=== PATIENT | male | born 1980 | race Caucasian/White ===

== ENCOUNTER 2018-05-11 06:16 | Day surgery (SDC) | payer OTHER ==
[2018-05-08 16:22] VITALS: BMI 27.0
[2018-05-11] MEDS ORDERED: CEFAZOLIN 2 GM/50 ML BAG ONE (06:40)
[2018-05-11] MEDS ORDERED: CEFAZOLIN 1 GM VIAL ONE (06:41)
[2018-05-11] MEDS ORDERED: Sodium Chloride 0.9% 100 ML ONE (06:41)
[2018-05-11] MEDS ORDERED: Lidocaine 1% w/Epinephrine 1:200K 30 ML VIAL ONE (08:17)
[2018-05-11] MEDS ORDERED: Fentanyl 100 MCG/2 ML VIAL ONE (08:31)
[2018-05-11] MEDS ORDERED: Meperidine HCl/PF 25 MG/ML VIAL ONE (09:19)
--- NOTE | 2018-05-11 09:57 | OP ---
DATE OF PROCEDURE: 05/11/2018 PREOPERATIVE DIAGNOSIS: Ganglion cyst right wrist. POSTOPERATIVE DIAGNOSIS: Ganglion cyst right wrist. PROCEDURE: Removal of ganglion, right wrist. SURGEON: Jesús Pop M.D. ANESTHESIA: General. BLOOD LOSS: Minimal. SPECIMEN: None. DRAINS: None. COMPLICATIONS: None. NARRATIVE REPORT: The patient was taken to the operating room where general anesthesia was induced. Right arm was prepped and draped in the usual sterile fashion. After exsanguination, tourniquet was inflated to 250 mmHg. I made a transverse incision along Devin's lines, I dissected the cyst down t o the joint level, amputated from the joint level. I then used a Bovie to coagulate the margins of t he synovium. Irrigation was performed. Tourniquet was released, hemostasis obtained. Skin was clos ed with subcuticular Prolene sutures and Steri-Strips and sterile dressings applied.
== END 2018-05-11 10:30 | disposition home or self-care (01) ==
LOC: SDC 06:16 → EEVIPCON 16:15
PROVIDERS: ATTEND Orthopaedic Surgery
PROC: 0LB50ZZ Excision of Right Lower Arm and Wrist Tendon, Open Approach (ICD-10-PCS; principal; 2018-05-11)
DX: M67.431 Ganglion, right wrist (principal); Z79.899 Other long term (current) drug therapy
CPT/HCPCS: 96374; J0690; J2175; J3010; J7050

== ENCOUNTER 2022-04-28 08:34 | Outpatient (CLI) | payer OTHER | END 2022-04-28 08:35 | disposition home or self-care (01) | LOC: MRI 08:34 | PROVIDERS: ATTEND Nurse Practitioner Family | DX: S83.412A Sprain of medial collateral ligament of left knee, initial encounter (principal); S80.02XA Contusion of left knee, initial encounter ==

== ENCOUNTER 2022-07-06 08:57 | Outpatient (CLI) | payer BC ==
[2022-07-06 10:16] LABS: #Eosinphils 0.5 10x3/uL (0.0-0.5); #Monocytes 0.7 10x3/uL (0.0-1.1); #Neutrophils 2.7 10x3/uL (1.5-8.4); %Basophils 0.6 % (0.0-2.0); %Eosinophils 7.2 % (0.0-6.0); %Lymphocytes 40.4 % (18.0-47.0); %Monocytes 10.1 % (0.0-10.0); %Neutrophils 41.5 % (40.0-75.0); Hemoglobin 14.3 g/dL (13.5-17.5); Mean Corpuscular HGB CONC 35.6 g/dL (32.0-36.0); Mean Corpuscular Volume 84.3 fl (81.2-95.1); Mean Platelet Volume 9.9 fl (7.4-10.4); Platelet Count 447 10x3/uL (150-450); RBC Distribution Width 12.1 % (11.5-14.5); Red Blood Cell (RBC) Count 4.77 10x6/uL (4.32-5.72); White Blood Cell (WBC) Count 6.5 10x3/uL (3.5-10.5)
== END 2022-07-06 08:58 | disposition home or self-care (01) ==
LOC: LABBT 08:57
PROVIDERS: ATTEND Orthopaedic Surgery
DX: Z01.812 Encounter for preprocedural laboratory examination (principal); S83.512D Sprain of anterior cruciate ligament of left knee, subsequent encounter; S83.242D Other tear of medial meniscus, current injury, left knee, subsequent encounter
CPT/HCPCS: 85025

== ENCOUNTER 2022-07-08 05:43 | Day surgery (SDC) | payer OTHER ==
[2022-07-07 10:09] VITALS: BMI 28.5
[2022-07-08] MEDS ORDERED: Fentanyl 100 MCG/2 ML VIAL ONE (06:30)
[2022-07-08] MEDS ORDERED: Midazolam HCl 2 mg/2 ml Vial ONE (06:30)
[2022-07-08] MEDS ORDERED: Ondansetron PF 4 MG/2 ML Vial ONE (06:50)
[2022-07-08] MEDS ORDERED: Dexamethasone 20 MG/5 ML VIAL ONE (06:50)
[2022-07-08] MEDS ORDERED: Ketorolac Tromethamine 30 MG/ML VIAL ONE (06:50)
[2022-07-08] MEDS ORDERED: PROPOFOL 200 MG/20 ML VIAL ONE (06:50)
[2022-07-08] MEDS ORDERED: Lidocaine 1% PF 5 ML VIAL ONE (06:50)
[2022-07-08] MEDS ORDERED: CEFAZOLIN 2 GM VIAL ONE (07:00)
[2022-07-08] MEDS ORDERED: Sodium Chloride 0.9% 100 ML ONE (07:00)
[2022-07-08] MEDS ORDERED: EPINEPHrine 1 MG/ML AMP ONE (07:02)
[2022-07-08] MEDS ORDERED: Bupivacaine PF 0.5% 30 ML VIAL ONE (07:02)
[2022-07-08] MEDS ORDERED: Lidocaine 1% (PF) 30 ML VIAL ONE (07:02)
[2022-07-08] MEDS ORDERED: HYDROmorphone 0.5 MG/0.5 ML SYRINGE ONE (07:03)
[2022-07-08] MEDS ORDERED: traMADol HCl 50 MG TAB PO PRN ×2 (07:15)
[2022-07-08] MEDS ORDERED: Ondansetron PF 4 MG/2 ML Vial IVP PRN (07:15)
[2022-07-08] MEDS ORDERED: Promethazine HCl 25 MG/ML VIAL IM PRN (07:15)
[2022-07-08] MEDS ORDERED: Ropivacaine 0.2% 550 ML 550 ML NERVE BLCK SCH (07:15)
[2022-07-08] MEDS ORDERED: Zolpidem Tartrate 5 MG TAB PO PRN (07:15)
[2022-07-08] MEDS ORDERED: HYDROcodone/Acetaminophen 10/325 mg Tablet PO PRN ×2 (07:15)
[2022-07-08] MEDS ORDERED: Fentanyl 100 MCG/2 ML VIAL IV PRN (07:15)
[2022-07-08] MEDS ORDERED: Meperidine HCl/PF 25 MG/ML VIAL ONE (09:21)
[2022-07-08] MEDS ORDERED: Ketorolac Tromethamine 30 MG/ML VIAL IVP SCH (12:00)
== END 2022-07-08 11:43 | disposition home or self-care (01) ==
LOC: SDC 05:43
PROVIDERS: ATTEND Orthopaedic Surgery
PROC: 0MQP4ZZ Repair Left Knee Bursa and Ligament, Percutaneous Endoscopic Approach (ICD-10-PCS; principal; 2022-07-08)
DX: S83.512A Sprain of anterior cruciate ligament of left knee, initial encounter (principal); S83.242A Other tear of medial meniscus, current injury, left knee, initial encounter; S83.272A Complex tear of lateral meniscus, current injury, left knee, initial encounter; T14.8XXA Other injury of unspecified body region, initial encounter; M22.42 Chondromalacia patellae, left knee; E78.00 Pure hypercholesterolemia, unspecified; F17.290 Nicotine dependence, other tobacco product, uncomplicated; Z79.899 Other long term (current) drug therapy; X50.1XXA Overexertion from prolonged static or awkward postures, initial encounter; Y93.02 Activity, running; Y99.0 Civilian activity done for income or pay
CPT/HCPCS: A4306; C1713; J0171; J1100; J1170; J1885; J2001; J2175; J2250; J2405; J2704; J2795; J3010; J3490; S0020

== ENCOUNTER 2023-03-14 19:30 | Outpatient (CLI) | payer BC | END 2023-03-14 19:31 | disposition home or self-care (01) | LOC: SLEEPLAB 19:30 | PROVIDERS: ATTEND Nurse Practitioner Family | DX: G47.33 Obstructive sleep apnea (adult) (pediatric) (principal); R06.83 Snoring; R53.83 Other fatigue; R09.89 Other specified symptoms and signs involving the circulatory and respiratory systems | CPT/HCPCS: 95811 ==

== ENCOUNTER 2023-05-09 12:52 | Outpatient (CLI) | payer BC, OTHER ==
[2023-05-09 13:38] LABS: #Basophils 0.1 10x3/uL (0.0-0.2); #Eosinphils 0.5 10x3/uL (0.0-0.5); #Monocytes 0.6 10x3/uL (0.0-1.1); %Basophils 1.2 % (0.0-2.0); %Eosinophils 6.9 % (0.0-6.0); %Lymphocytes 45.8 % (18.0-47.0); %Monocytes 7.5 % (0.0-10.0); %Neutrophils 38.5 % (40.0-75.0); Hematocrit 44.8 % (38.8-50.0); Hemoglobin 15.8 g/dL (13.5-17.5); Mean Corpuscular HGB CONC 35.3 g/dL (32.0-36.0); Mean Corpuscular Hemoglobin 30.2 pg (27.0-33.0); Mean Corpuscular Volume 85.5 fl (81.2-95.1); Mean Platelet Volume 9.8 fl (7.4-10.4); Platelet Count 322 10x3/uL (150-450); Red Blood Cell (RBC) Count 5.24 10x6/uL (4.32-5.72); White Blood Cell (WBC) Count 7.7 10x3/uL (3.5-10.5)
== END 2023-05-09 12:53 | disposition home or self-care (01) ==
LOC: LABBT 12:52
PROVIDERS: ATTEND Orthopaedic Surgery
DX: Z01.812 Encounter for preprocedural laboratory examination (principal); M23.92 Unspecified internal derangement of left knee; Z98.890 Other specified postprocedural states
CPT/HCPCS: 85025

== ENCOUNTER 2023-05-12 05:34 | Day surgery (SDC) | payer OTHER ==
[2023-05-09 13:23] VITALS: BMI 29.8
[2023-05-12] MEDS ORDERED: fentaNYL PF 100 MCG/2 ML SYRINGE ONE (06:22)
[2023-05-12] MEDS ORDERED: Lidocaine 2% PF 5 ML VIAL ONE (06:33)
[2023-05-12] MEDS ORDERED: PROPOFOL 0 ML ONE (06:33)
[2023-05-12] MEDS ORDERED: Bupivacaine PF 0.5% 30 ML VIAL ONE (06:33)
[2023-05-12] MEDS ORDERED: EPINEPHrine 1 MG/ML VIAL ONE (06:40)
[2023-05-12] MEDS ORDERED: Promethazine HCl 25 MG/ML VIAL IM PRN (06:40)
[2023-05-12] MEDS ORDERED: HYDROmorphone 2 MG/ML VIAL SLOW IVP PRN (06:40)
[2023-05-12] MEDS ORDERED: Ondansetron HCl/PF 4 MG/2 ML Vial IVP PRN (06:40)
[2023-05-12] MEDS ORDERED: Lidocaine 1% (PF) 30 ML VIAL ONE (06:40)
[2023-05-12] MEDS ORDERED: Bupivacaine 0.25% HCL 30 ML VIAL ONE (06:40)
[2023-05-12] MEDS ORDERED: Ondansetron PF 4 MG/2 ML Vial ONE (06:45)
[2023-05-12] MEDS ORDERED: Glycopyrrolate 0.2 MG/ML 5 ML SYRINGE ONE (06:45)
[2023-05-12] MEDS ORDERED: Dexamethasone 20 MG/5 ML VIAL ONE (06:45)
[2023-05-12] MEDS ORDERED: Ketorolac Tromethamine 30 MG/ML VIAL ONE (06:45)
[2023-05-12] MEDS ORDERED: PROPOFOL 200 MG/20 ML VIAL ONE (06:45)
[2023-05-12] MEDS ORDERED: CEFAZOLIN 2 GM VIAL ONE (06:51)
[2023-05-12] MEDS ORDERED: Sodium Chloride 0.9% 100 ML ONE (06:51)
[2023-05-12] MEDS ORDERED: PROPOFOL 20 ML ONE (07:21)
[2023-05-12] MEDS ORDERED: Meperidine HCl/PF 25 MG/ML VIAL ONE (08:05)
[2023-05-12] MEDS ORDERED: fentaNYL 50 mcg/mL 1 mL Vial ONE ×2 (08:13→08:21)
[2023-05-12] MEDS ORDERED: HYDROcodone/Acetaminophen 5/325 mg Tablet ONE (08:52)
== END 2023-05-12 10:25 | disposition home or self-care (01) ==
LOC: SDC 05:34
PROVIDERS: ATTEND Orthopaedic Surgery
PROC: 0SBD4ZZ Excision of Left Knee Joint, Percutaneous Endoscopic Approach (ICD-10-PCS; principal; 2023-05-12)
DX: M23.92 Unspecified internal derangement of left knee (principal); M94.262 Chondromalacia, left knee; G47.30 Sleep apnea, unspecified; Z98.890 Other specified postprocedural states; Z79.899 Other long term (current) drug therapy
CPT/HCPCS: J0171; J1100; J1885; J2001; J2175; J2405; J2704; J3010; J3490; S0020

== ENCOUNTER 2023-07-29 10:59 | Outpatient (CLI) | payer BC | END 2023-07-29 11:00 | disposition home or self-care (01) | LOC: BICRAD 10:59 | PROVIDERS: ATTEND Nurse Practitioner Family | DX: M25.551 Pain in right hip (principal) | CPT/HCPCS: 72170 ==